=== PATIENT | female | born 1990 | race African-American/Black ===

== ENCOUNTER 2018-05-15 13:20 | Inpatient (IN) ==
[2018-05-15] MEDS: LACTATED RINGERS 1,000 ML IV SCH ×2 (14:30→23:21)
[2018-05-15] MEDS ORDERED: PROMETHAZINE 25 MG/1 ML VIAL IM PRN (14:41)
[2018-05-15 14:56] LABS: Basophils % 0.6 % (0.0-0.8); Eosinophils % 0.5 % (0.00-10.9); Hematocrit 35.5 VOL% (35.7-47.0); Hemoglobin 12.3 GM/DL (12.0-16.0); Immature Granulocytes % 0.3 %; Immature Granulocytes Absolute 0.02 #; Lymphocytes # 1.5 10*3/uL (1.4-4.0); Lymphocytes % 23.2 % (21.3-54.2); Mean Corpuscular HGB Conc 34.6 GM/DL (32-36); Mean Corpuscular Hemoglobin 26 PG (27-34); Mean Corpuscular Volume 75.5 FL (87-102); Mean Platelet Volume 11.6 FL (9.6-12.0); Monocytes # 0.7 10*3/uL (0.11-0.8); Monocytes % 11.6 % (1.7-12.7); Neutrophils % 63.8 % (38.7-73.9); Platelet Count 237 T/CUMM (130-400); Red Cell Distribution Width 14.8 % (9.3-17.3); White Blood Count 6.3 T/CUMM (4-12)
[2018-05-15] MEDS: ONDANSETRON 4 MG/2 ML VIAL IV PRN (15:09)
[2018-05-15 15:39] LABS: Bilirubin,Total 0.7 MG/DL (0.2-1.0); Calcium 9.8 MG/DL (8.5-10.1); Osmolality,Calculated 266.1 MOS/KG (273-304); Potassium 2.9 MMOL/L (3.5-5.1); Total Protein 8.4 G/DL (6.4-8.3)
[2018-05-15] MEDS ORDERED: POTASSIUM CHLORIDE RIDER 10 MEQ in PREMIX 1 EACH IV PRN (15:44)
[2018-05-15 16:55] LABS: Apearance,Urine CLEAR (Clear); Bilirubin,Urine Negative (Negative); Blood, Urine Negative (Negative); Glucose,Urine (UA) Negative (Negative); Ketones,Urine 80 mg/dL (Negative); Mucus,Urine Occasional /LPF (Occasional); Nitrite,Urine Negative (Negative); Protein,Urine Negative; RBC,Urine <1 /HPF (0-4); Squamous Epithelial Cell,Urine Occasional /HPF (0-10); Urine Color Yellow (Yellow); Urine Specific Gravity 1.014 (1.001-1.035); Urine Urobilinogen < 2.0 EU/DL (0.2-1.0); WBC,Urine 2 /HPF (0-6)
[2018-05-15] MEDS: POTASSIUM CHLORIDE RIDER 10 MEQ in PREMIX 1 EACH IV PRN ×4 (17:10→23:22)
[2018-05-16] MEDS: POTASSIUM CHLORIDE RIDER 10 MEQ in PREMIX 1 EACH IV PRN (01:18)
[2018-05-16] MEDS: LACTATED RINGERS 1,000 ML IV SCH ×3 (07:01→19:29)
[2018-05-16] MEDS: POTASSIUM CHLORIDE RIDER 10 MEQ in PREMIX 1 EACH IV SCH ×2 (08:56→11:08)
[2018-05-16] MEDS: ONDANSETRON 4 MG/2 ML VIAL IV PRN ×2 (09:36→16:39)
[2018-05-16] MEDS: SERTRALINE 50 MG TABLET PO SCH (14:04)
[2018-05-16] MEDS: PROPRANOLOL 20 MG TABLET PO SCH ×2 (14:04→20:34)
[2018-05-16] MEDS ORDERED: ACETAMINOPHEN 500 MG TABLET PO PRN (20:15)
[2018-05-17] MEDS: LACTATED RINGERS 1,000 ML IV SCH ×2 (01:48→08:14)
[2018-05-17 08:00] VITALS: BP 97/58
[2018-05-17] MEDS: PROPRANOLOL 20 MG TABLET PO SCH (08:37)
[2018-05-17] MEDS: SERTRALINE 50 MG TABLET PO SCH (08:37)
[2018-05-17] MEDS ORDERED: INFLUENZA VIRUS VACCINE 0.5 ML SYRINGE IM ONE (14:58)
== END 2018-05-17 15:40 | disposition home or self-care (01) | DRG 566 ==
LOC: N.LDOUT 13:20 → N.OB 13:24
PROVIDERS: ADMIT Obstetrics & Gynecology; ATTEND Obstetrics & Gynecology

== ENCOUNTER 2018-05-29 11:03 | Inpatient (IN) ==
[2018-05-29] MEDS ORDERED: ONDANSETRON 4 MG/2 ML VIAL IV PRN (11:21)
[2018-05-29] MEDS ORDERED: LACTATED RINGERS 1,000 ML IV SCH (11:30)
[2018-05-29] MEDS: methylPREDNISolone SOD SUC 40 MG/1 ML VIAL IV SCH (12:45)
[2018-05-29 12:52] LABS: Basophils # 0.1 10*3/uL (0.0-0.2); Basophils % 0.9 % (0.0-0.8); Eosinophils % 0.4 % (0.00-10.9); Hematocrit 37.8 VOL% (35.7-47.0); Hemoglobin 13.2 GM/DL (12.0-16.0); Immature Granulocytes % 0.7 %; Immature Granulocytes Absolute 0.05 #; Lymphocytes # 1.7 10*3/uL (1.4-4.0); Lymphocytes % 25.6 % (21.3-54.2); Mean Corpuscular HGB Conc 34.9 GM/DL (32-36); Mean Corpuscular Hemoglobin 26 PG (27-34); Mean Corpuscular Volume 75.6 FL (87-102); Mean Platelet Volume 12.8 FL (9.6-12.0); Monocytes # 0.9 10*3/uL (0.11-0.8); Monocytes % 12.7 % (1.7-12.7); Neutrophils % 59.7 % (38.7-73.9); Platelet Count 256 T/CUMM (130-400); Red Cell Distribution Width 15.5 % (9.3-17.3); White Blood Count 6.7 T/CUMM (4-12)
[2018-05-29] MEDS: FAMOTIDINE 20 MG/2 ML VIAL IV SCH (12:52)
[2018-05-29] MEDS: METOCLOPRAMIDE 10 MG/2 ML VIAL IV SCH ×2 (12:57→20:31)
[2018-05-29 13:17] LABS: Bilirubin,Total 0.8 MG/DL (0.2-1.0); Calcium 9.3 MG/DL (8.5-10.1); Free T4 (Free Thyroxine) 1.82 NG/DL (0.76-1.46); Osmolality,Calculated 260.5 MOS/KG (273-304); Thyroid Stimulating Hormone 0.768 uIU/ml (0.358-3.74); Total Protein 8.1 G/DL (6.4-8.3)
[2018-05-29 13:25] LABS: Potassium 2.4 MMOL/L (3.5-5.1)
[2018-05-29] MEDS ORDERED: MULTIVITAMIN INJ 10 ML in SODIUM CHLORIDE 0.9% 1,000 ML IV SCH (14:00)
[2018-05-29] MEDS: POTASSIUM CHLORIDE RIDER 10 MEQ in PREMIX 1 EACH IV SCH ×4 (15:07→23:17)
[2018-05-29] MEDS: MULTIVITAMIN IV SCH (18:05)
[2018-05-29] MEDS: LACTATED RINGERS IV SCH (18:05)
[2018-05-29] MEDS: SODIUM CHLORIDE IV SCH (18:05)
[2018-05-30] MEDS: methylPREDNISolone SOD SUC 40 MG/1 ML VIAL IV SCH ×2 (01:15→12:57)
[2018-05-30] MEDS: FAMOTIDINE 20 MG/2 ML VIAL IV SCH ×2 (01:20→12:24)
[2018-05-30] MEDS: POTASSIUM CHLORIDE RIDER 10 MEQ in PREMIX 1 EACH IV PRN ×2 (02:49→06:41)
[2018-05-30] MEDS: METOCLOPRAMIDE 10 MG/2 ML VIAL IV SCH ×3 (04:58→21:46)
[2018-05-30] MEDS: LACTATED RINGERS 1,000 ML IV SCH ×2 (05:09→14:58)
[2018-05-30 07:19] LABS: Basophils % 0.3 % (0.0-0.8); Hematocrit 26.7 VOL% (35.7-47.0); Hemoglobin 9.4 GM/DL (12.0-16.0); Immature Granulocytes % 0.7 %; Immature Granulocytes Absolute 0.05 #; Lymphocytes # 0.7 10*3/uL (1.4-4.0); Lymphocytes % 9.9 % (21.3-54.2); Mean Corpuscular HGB Conc 35.2 GM/DL (32-36); Mean Corpuscular Hemoglobin 27 PG (27-34); Mean Corpuscular Volume 76.1 FL (87-102); Mean Platelet Volume 12.5 FL (9.6-12.0); Monocytes # 0.4 10*3/uL (0.11-0.8); Monocytes % 5.2 % (1.7-12.7); Neutrophils # 5.6 10*3/uL (1.4-7.4); Neutrophils % 83.9 % (38.7-73.9); Platelet Count 161 T/CUMM (130-400); Red Blood Count 3.51 MC/CUMM (3.8-5.5); Red Cell Distribution Width 15.5 % (9.3-17.3); White Blood Count 6.7 T/CUMM (4-12)
[2018-05-30 07:37] LABS: Albumin 2.8 G/DL (3.4-5.0); Bilirubin,Total 0.6 MG/DL (0.2-1.0); Calcium 8.3 MG/DL (8.5-10.1); Potassium 3.2 MMOL/L (3.5-5.1)
[2018-05-30] MEDS: LACTATED RINGERS IV SCH (14:58)
[2018-05-30] MEDS: MULTIVITAMIN IV SCH (14:58)
[2018-05-30] MEDS: SODIUM CHLORIDE IV SCH (14:58)
[2018-05-30] MEDS: POTASSIUM CHLORIDE RIDER 10 MEQ in PREMIX 1 EACH IV SCH ×3 (15:06→21:11)
[2018-05-31] MEDS: POTASSIUM CHLORIDE RIDER 10 MEQ in PREMIX 1 EACH IV SCH ×6 (00:22→21:03)
[2018-05-31] MEDS: LACTATED RINGERS 1,000 ML IV SCH (00:22)
[2018-05-31] MEDS: SODIUM CHLORIDE IV SCH ×2 (00:23→11:26)
[2018-05-31] MEDS: LACTATED RINGERS IV SCH ×2 (00:23→11:26)
[2018-05-31] MEDS: MULTIVITAMIN IV SCH ×2 (00:23→11:26)
[2018-05-31] MEDS: FAMOTIDINE 20 MG/2 ML VIAL IV SCH ×2 (01:22→10:54)
[2018-05-31] MEDS: methylPREDNISolone SOD SUC 40 MG/1 ML VIAL IV SCH ×2 (01:24→11:08)
[2018-05-31] MEDS: METOCLOPRAMIDE 10 MG/2 ML VIAL IV SCH ×3 (03:44→20:00)
[2018-06-01] MEDS: LACTATED RINGERS IV SCH (00:34)
[2018-06-01] MEDS: SODIUM CHLORIDE IV SCH (00:34)
[2018-06-01] MEDS: methylPREDNISolone SOD SUC 40 MG/1 ML VIAL IV SCH ×2 (00:34→11:40)
[2018-06-01] MEDS: MULTIVITAMIN IV SCH (00:34)
[2018-06-01] MEDS: FAMOTIDINE 20 MG/2 ML VIAL IV SCH (00:36)
[2018-06-01] MEDS: POTASSIUM CHLORIDE RIDER 10 MEQ in PREMIX 1 EACH IV SCH ×4 (04:46→11:42)
[2018-06-01] MEDS: METOCLOPRAMIDE 10 MG/2 ML VIAL IV SCH ×2 (04:50→04:57)
[2018-06-01] MEDS: FAMOTIDINE 20 MG TABLET PO SCH ×2 (11:03→21:29)
[2018-06-01] MEDS: ONDANSETRON 4 MG TABLET PO SCH ×2 (11:03→18:21)
[2018-06-01] MEDS: PYRIDOXINE 50 MG TABLET PO SCH ×2 (14:36→21:29)
[2018-06-01] MEDS ORDERED: ACETAMINOPHEN 325 MG TABLET ONE (17:42)
[2018-06-01] MEDS ORDERED: ACETAMINOPHEN 325 MG TABLET PO PRN (17:45)
[2018-06-01] MEDS ORDERED: PROMETHAZINE 25 MG TABLET PO SCH (21:00)
[2018-06-02] MEDS: ONDANSETRON 4 MG TABLET PO SCH (03:57)
[2018-06-02 07:08] VITALS: BP 104/54
[2018-06-02] MEDS: PYRIDOXINE 50 MG TABLET PO SCH (09:04)
[2018-06-02] MEDS: FAMOTIDINE 20 MG TABLET PO SCH (09:04)
== END 2018-06-02 09:30 | disposition home or self-care (01) | DRG 566 ==
LOC: N.OB → OBSVTOIN 11:21
PROVIDERS: ADMIT Obstetrics & Gynecology; ATTEND Obstetrics & Gynecology

== ENCOUNTER 2018-11-19 10:41 | Inpatient (IN) ==
[2018-11-19] MEDS ORDERED: MEPERIDINE 25 MG/1 ML VIAL IV PRN (11:17)
[2018-11-19] MEDS ORDERED: BUTORPHANOL 1 MG/ML VIAL IV PRN (11:17)
[2018-11-19] MEDS ORDERED: ONDANSETRON 4 MG/2 ML VIAL IV PRN (11:17)
[2018-11-19] MEDS ORDERED: LACTATED RINGERS 1,000 ML IV ONE (11:17)
[2018-11-19] MEDS ORDERED: hydrALAZINE 20 MG/1 ML VIAL IV PRN (11:20)
[2018-11-19] MEDS ORDERED: OXYTOCIN/LR 20 UNIT/1,000 ML BAG IV SCH (11:30)
[2018-11-19 11:44] LABS: Basophils % 0.4 % (0.0-0.8); Eosinophils % 0.5 % (0.00-10.9); Hematocrit 28.2 VOL% (35.7-47.0); Hemoglobin 8.1 GM/DL (12.0-16.0); Immature Granulocytes % 1.1 %; Immature Granulocytes Absolute 0.08 #; Lymphocytes # 1.2 10*3/uL (1.4-4.0); Lymphocytes % 15.8 % (21.3-54.2); Mean Corpuscular HGB Conc 28.7 GM/DL (32-36); Mean Corpuscular Volume 65.7 FL (87-102); Monocytes % 10.1 % (1.7-12.7); NRBC # 0.02 10*3/uL; Neutrophils % 72.1 % (38.7-73.9); Platelet Count 203 T/CUMM (130-400); Red Blood Count 4.29 MC/CUMM (3.8-5.5); Red Cell Distribution Width 19.9 % (9.3-17.3); White Blood Count 7.3 T/CUMM (4-12)
[2018-11-19] MEDS: LACTATED RINGERS 1,000 ML IV SCH ×2 (11:50→14:33)
[2018-11-19 11:56] LABS: INR 0.9; PT Patient Result 9.4 SECS; Partial Thromboplastin Time 26.9 SECS (0-40)
[2018-11-19] MEDS ORDERED: AMPICILLIN INJ 2,000 MG in SODIUM CHLORIDE 0.9% 100 ML IV ONE (12:00)
[2018-11-19 12:21] LABS: Albumin 2.9 G/DL (3.4-5.0); Bilirubin,Direct 0.12 MG/DL (0.0-0.20); Bilirubin,Total 0.7 MG/DL (0.2-1.0); Calcium 8.9 MG/DL (8.5-10.1); Osmolality,Calculated 270.7 MOS/KG (273-304); Uric Acid 4.8 MG/DL (2.6-6.0)
[2018-11-19] MEDS ORDERED: PROMETHAZINE 25 MG/1 ML VIAL IM ONE (14:43)
[2018-11-19] MEDS ORDERED: NALOXONE 0.4 MG/ML VIAL IV PRN (14:43)
[2018-11-19] MEDS ORDERED: CITRIC ACID/SODIUM CITRATE 30 ML UDCUP PO ONE (14:43)
[2018-11-19] MEDS ORDERED: ePHEDrine 50 MG/ML AMP IV PRN (14:43)
[2018-11-19] MEDS ORDERED: FAMOTIDINE 20 MG/2 ML VIAL IV ONE ×2 (14:43→15:30)
[2018-11-19] MEDS ORDERED: diphenhydrAMINE 50 MG/1 ML VIAL IV PRN ×2 (14:43)
[2018-11-19 14:49] LABS: Hepatitis B Surface Ag Quant 0.12 Index; Hepatitis B Surface Ag Result Negative (Negative)
[2018-11-19] MEDS ORDERED: fentaNYL 2 MCG/ROPIV 0.2% EPID 100 ML EPIDURAL SCH (15:00)
[2018-11-19] MEDS ORDERED: AMPICILLIN INJ 1,000 MG in SODIUM CHLORIDE 0.9% 100 ML IV SCH (16:00)
[2018-11-19 17:00] LABS: Apearance,Urine CLEAR (Clear); Bacteria,Urine Occasional /HPF (Few); Bilirubin,Urine Negative (Negative); Blood, Urine Small mg/dL (Negative); Glucose,Urine (UA) Negative (Negative); Ketones,Urine Negative (Negative); Nitrite,Urine Negative (Negative); Protein,Urine Negative; RBC,Urine 1 /HPF (0-4); Squamous Epithelial Cell,Urine Occasional /HPF (0-10); Urine Color Straw (Yellow); Urine Specific Gravity 1.005 (1.001-1.035); Urine Urobilinogen < 2.0 EU/DL (0.2-1.0); WBC,Urine <1 /HPF (0-6)
[2018-11-19] MEDS ORDERED: MAGNESIUM SULF RIDER 4 GM in PREMIX 1 EACH IV ONE (18:13)
[2018-11-19] MEDS ORDERED: LABETALOL 100 MG/20 ML VIAL IV PRN ×2 (18:13)
[2018-11-19] MEDS ORDERED: LABETALOL 20 MG/4 ML SYRINGE IV PRN (18:13)
[2018-11-19] MEDS ORDERED: LABETALOL 20 MG/4 ML SYRINGE IV ONE (18:20)
[2018-11-19] MEDS ORDERED: MAGNESIUM SULF RIDER 100 ML IV ONE (18:29)
[2018-11-19] MEDS ORDERED: MAGNESIUM SULF DRIP 40 GM/1,000 ML ML IV SCH (18:30)
[2018-11-19] MEDS ORDERED: miSOPROStol 200 MCG TABLET ONE (18:42)
[2018-11-19] MEDS ORDERED: miSOPROStol 200 MCG TABLET VAG ONE (19:00)
[2018-11-19] MEDS ORDERED: OXYTOCIN/LR 20 UNIT/1,000 ML BAG IV ONE (21:21)
[2018-11-19] MEDS ORDERED: oxyCODONE/ACETAMINOPHEN 5-325 MG TABLET PO PRN (21:21)
[2018-11-19] MEDS ORDERED: HYDROCORTISONE 2.5% RECTAL CREAM 30 GM TUBE TOP PRN (21:21)
[2018-11-19] MEDS ORDERED: BISACODYL 10 MG SUPP RECTAL PRN (21:21)
[2018-11-19] MEDS ORDERED: ACETAMINOPHEN 325 MG TABLET PO PRN (21:21)
[2018-11-19] MEDS ORDERED: LANOLIN 50% CREAM 0.3 OZ TUBE TOP PRN (21:21)
[2018-11-19] MEDS ORDERED: BENZOCAINE 20%/MENTHOL 0.5% SPRAY 56 GM CAN TOP PRN (21:21)
[2018-11-19] MEDS ORDERED: WITCH HAZEL PADS 100/JAR TOP PRN (21:21)
[2018-11-19] MEDS: oxyCODONE/ACETAMINOPHEN 5-325 MG TABLET PO PRN (22:48)
[2018-11-20 05:49] LABS: Basophils # 0.1 10*3/uL (0.0-0.2); Basophils % 0.7 % (0.0-0.8); Eosinophils # 0.1 10*3/uL (0.0-0.87); Eosinophils % 0.5 % (0.00-10.9); Hematocrit 22.3 VOL% (35.7-47.0); Immature Granulocytes % 0.9 %; Immature Granulocytes Absolute 0.09 #; Lymphocytes # 1.6 10*3/uL (1.4-4.0); Lymphocytes % 15.4 % (21.3-54.2); Mean Corpuscular HGB Conc 29.6 GM/DL (32-36); Mean Corpuscular Volume 65.4 FL (87-102); Monocytes % 10.3 % (1.7-12.7); NRBC # 0.02 10*3/uL; Neutrophils % 72.2 % (38.7-73.9); Platelet Count 174 T/CUMM (130-400); Red Blood Count 3.41 MC/CUMM (3.8-5.5); Red Cell Distribution Width 19.7 % (9.3-17.3); White Blood Count 10.4 T/CUMM (4-12)
[2018-11-20 05:50] LABS: Hemoglobin 6.6 GM/DL (12.0-16.0)
[2018-11-20 06:02] LABS: Hypochromasia 1+; Microcytosis 1+; Platelet Estimate Adequate
[2018-11-20] MEDS: DOCUSATE SODIUM 100 MG CAPSULE PO SCH ×2 (10:02→20:29)
[2018-11-20] MEDS: IBUPROFEN 800 MG TABLET PO PRN (11:43)
[2018-11-20] MEDS: FERROUS SULFATE 325 MG TABLET PO SCH ×2 (14:33→20:29)
[2018-11-21] MEDS: oxyCODONE/ACETAMINOPHEN 5-325 MG TABLET PO PRN (00:50)
[2018-11-21 00:57] LABS: Basophils % 0.2 % (0.0-0.8); Eosinophils # 0.1 10*3/uL (0.0-0.87); Eosinophils % 1.2 % (0.00-10.9); Hematocrit 21.7 VOL% (35.7-47.0); Immature Granulocytes % 2.8 %; Immature Granulocytes Absolute 0.26 #; Lymphocytes # 1.9 10*3/uL (1.4-4.0); Lymphocytes % 20.1 % (21.3-54.2); Mean Corpuscular Volume 66.2 FL (87-102); Mean Platelet Volume 11.9 FL (9.6-12.0); Monocytes % 9.8 % (1.7-12.7); NRBC # 0.07 10*3/uL; Neutrophils % 65.9 % (38.7-73.9); Platelet Count 176 T/CUMM (130-400); Red Blood Count 3.28 MC/CUMM (3.8-5.5); Red Cell Distribution Width 20.1 % (9.3-17.3); White Blood Count 9.4 T/CUMM (4-12)
[2018-11-21 00:59] LABS: Hemoglobin 6.3 GM/DL (12.0-16.0)
[2018-11-21 01:29] LABS: Albumin 2.4 G/DL (3.4-5.0); Bilirubin,Total 0.8 MG/DL (0.2-1.0); Calcium 8.3 MG/DL (8.5-10.1); Osmolality,Calculated 271.7 MOS/KG (273-304); Total Protein 6.1 G/DL (6.4-8.3)
[2018-11-21] MEDS ORDERED: SODIUM CHLORIDE 0.9% 1,000 ML IV PRN (01:56)
[2018-11-21] MEDS: DOCUSATE SODIUM 100 MG CAPSULE PO SCH (08:47)
[2018-11-21] MEDS: FERROUS SULFATE 325 MG TABLET PO SCH (08:50)
[2018-11-21] MEDS: IBUPROFEN 800 MG TABLET PO PRN (08:53)
[2018-11-21] MEDS ORDERED: DIPH/TET/ACEL PERT BOOSTER VACCINE 0.5 ML VIAL IM ONE (09:00)
[2018-11-21 11:23] VITALS: BP 137/88
== END 2018-11-21 11:20 | disposition home or self-care (01) | DRG 560 ==
LOC: N.LDOUT 10:41 → N.LD 10:42 → N.OB 11-20 13:31
PROVIDERS: ADMIT Obstetrics & Gynecology; ATTEND Obstetrics & Gynecology

== ENCOUNTER 2021-11-21 15:48 | Observation (INO) ==
[2021-11-21] MEDS ORDERED: LACTATED RINGERS 1,000 ML IV ONE (17:30)
[2021-11-21 18:05] LABS: Basophils % 0.7 % (0.0-0.8); Eosinophils # 0.1 10*3/uL (0.0-0.87); Eosinophils % 1.6 % (0.00-10.9); Hemoglobin 11.1 GM/DL (12.0-16.0); Immature Granulocytes % 0.4 %; Immature Granulocytes Absolute 0.02 #; Lymphocytes # 1.9 10*3/uL (1.4-4.0); Lymphocytes % 34.1 % (21.3-54.2); Mean Corpuscular HGB Conc 33.6 GM/DL (32-36); Mean Corpuscular Volume 76.9 FL (87-102); Mean Platelet Volume 12.8 FL (9.6-12.0); Monocytes # 0.6 10*3/uL (0.11-0.8); Monocytes % 10.4 % (1.7-12.7); Neutrophils % 52.8 % (38.7-73.9); Platelet Count 210 T/CUMM (130-400); Red Blood Count 4.29 MC/CUMM (3.8-5.5); Red Cell Distribution Width 14.3 % (9.3-17.3); White Blood Count 5.7 T/CUMM (4-12)
[2021-11-21] MEDS: ONDANSETRON 4 MG/2 ML VIAL IV PRN (18:05)
[2021-11-21] MEDS: FAMOTIDINE 20 MG/2 ML VIAL IV SCH (18:08)
[2021-11-21] MEDS: METOCLOPRAMIDE 10 MG/2 ML VIAL IV SCH (18:12)
[2021-11-21 18:20] LABS: Alanine Aminotransferase 17 U/L (13-56); Albumin 3.6 G/DL (3.4-5.0); Alkaline Phosphatase 78 U/L (45-117); Amylase 134 U/L (25-115); Aspartate Amino Transferase 11 U/L (0-37); Bilirubin,Total < 0.39 MG/DL (0.20-1.00); Blood Urea Nitrogen 5 MG/DL (7-18); Carbon Dioxide 24 MMOL/L (21-32); Chloride 106 MMOL/L (98-107); Estimated Glom Filtration Rate 138 ML/MIN; Glucose 81 MG/DL (74-106); Potassium 3.7 MMOL/L (3.5-5.1); Sodium 136 MMOL/L (136-145); Total Protein 7.9 G/DL (6.4-8.2)
[2021-11-21 18:28] LABS: Free T4 (Free Thyroxine) 1.09 NG/DL (0.76-1.46); Thyroid Stimulating Hormone 0.869 uIU/ml (0.358-3.74)
[2021-11-21] MEDS: LACTATED RINGERS 1,000 ML IV SCH (19:04)
[2021-11-21 20:58] LABS: Bacteria,Urine Occasional /HPF (Few); Mucus,Urine Occasional /LPF (Occasional); Squamous Epithelial Cell,Urine Occasional /HPF (0-10)
[2021-11-21 21:00] LABS: Bilirubin,Urine Negative (Negative); Blood, Urine Negative (Negative); Glucose,Urine (UA) Negative (Negative); Ketones,Urine Negative (Negative); Nitrite,Urine Negative (Negative); Protein,Urine Negative (Negative); Urine Appearance Clear (Clear); Urine Color Yellow (Yellow); Urine Specific Gravity < 1.005 (1.001-1.035); Urine Urobilinogen 0.2 eU/dL (<2.0); Urine pH 5.5 (4.5-8.0)
[2021-11-22] MEDS: ONDANSETRON 4 MG/2 ML VIAL IV PRN (00:41)
[2021-11-22] MEDS: LACTATED RINGERS 1,000 ML IV SCH ×2 (00:49→07:09)
[2021-11-22] MEDS: METOCLOPRAMIDE 10 MG/2 ML VIAL IV SCH ×2 (00:50→08:54)
[2021-11-22] MEDS: FAMOTIDINE 20 MG/2 ML VIAL IV SCH (05:38)
[2021-11-22] MEDS: PYRIDOXINE 50 MG TABLET PO SCH ×2 (09:29→15:50)
[2021-11-22 12:09] VITALS: BP 98/59
== END 2021-11-22 15:55 | disposition home or self-care (01) ==
LOC: N.OB
PROVIDERS: ADMIT Obstetrics & Gynecology; ATTEND Obstetrics & Gynecology

== ENCOUNTER 2021-12-06 14:29 | Observation (INO) ==
[2021-12-06] MEDS ORDERED: METOCLOPRAMIDE 10 MG/2 ML VIAL IV PRN (15:17)
[2021-12-06] MEDS ORDERED: LACTATED RINGERS 1,000 ML IV ONE (15:18)
[2021-12-06 16:14] LABS: Basophils % 0.8 % (0.0-0.8); Eosinophils % 0.8 % (0.00-10.9); Hematocrit 31.8 VOL% (35.7-47.0); Hemoglobin 10.6 GM/DL (12.0-16.0); Immature Granulocytes % 0.2 %; Immature Granulocytes Absolute 0.01 #; Lymphocytes # 1.5 10*3/uL (1.4-4.0); Lymphocytes % 28.7 % (21.3-54.2); Mean Corpuscular HGB Conc 33.3 GM/DL (32-36); Monocytes # 0.6 10*3/uL (0.11-0.8); Monocytes % 11.8 % (1.7-12.7); Neutrophils % 57.7 % (38.7-73.9); Platelet Count 224 T/CUMM (130-400); Red Blood Count 4.13 MC/CUMM (3.8-5.5); Red Cell Distribution Width 14.5 % (9.3-17.3); White Blood Count 5.2 T/CUMM (4-12)
[2021-12-06] MEDS: LACTATED RINGERS 1,000 ML IV SCH ×2 (16:20→23:08)
[2021-12-06 16:37] LABS: Albumin 3.2 G/DL (3.4-5.0); Bilirubin,Total 0.4 MG/DL (0.20-1.00); Calcium 9.1 MG/DL (8.5-10.1); Potassium 3.5 MMOL/L (3.5-5.1)
[2021-12-06] MEDS: ONDANSETRON 4 MG/2 ML VIAL IV PRN ×2 (16:37→23:10)
[2021-12-06] MEDS: methylPREDNISolone SOD SUC 40 MG/1 ML VIAL IV SCH (16:44)
[2021-12-06] MEDS: FAMOTIDINE 20 MG/2 ML VIAL IV SCH (16:50)
[2021-12-06 17:50] LABS: Bilirubin,Urine Negative (Negative); Blood, Urine Trace mg/dL (Negative); Glucose,Urine (UA) Negative (Negative); Ketones,Urine Negative (Negative); Nitrite,Urine Negative (Negative); Protein,Urine Negative (Negative); Urine Appearance Clear (Clear); Urine Color Yellow (Yellow)
[2021-12-06 17:51] LABS: RBC,Urine 1 /HPF (0-4); Squamous Epithelial Cell,Urine Occasional /HPF (0-10)
[2021-12-07] MEDS ORDERED: diphenhydrAMINE CAP 25 MG CAPSULE PO PRN (01:16)
[2021-12-07] MEDS: methylPREDNISolone SOD SUC 40 MG/1 ML VIAL IV SCH ×2 (03:55→15:55)
[2021-12-07] MEDS: FAMOTIDINE 20 MG/2 ML VIAL IV SCH ×2 (04:01→16:00)
[2021-12-07] MEDS ORDERED: METOCLOPRAMIDE 10 MG/2 ML VIAL IV SCH (09:00)
[2021-12-07] MEDS: LACTATED RINGERS 1,000 ML IV SCH (10:30)
[2021-12-07] MEDS: ONDANSETRON 4 MG/2 ML VIAL IV PRN (12:11)
[2021-12-07 15:17] VITALS: BP 104/54
== END 2021-12-07 17:00 | disposition home or self-care (01) ==
LOC: N.OBOUT 14:29 → N.OB 14:29
PROVIDERS: ADMIT Obstetrics & Gynecology; ATTEND Obstetrics & Gynecology